=== PATIENT | male | born 1990 | race Caucasian/White ===

== ENCOUNTER 2019-11-12 08:56 | Emergency (ER) | payer OTHER ==
[2019-11-12 09:10] VITALS: BP 143/89; PULSE 107; RESP 18; TEMP 98.2
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
== END 2019-11-12 11:16 | disposition home or self-care (01) ==
LOC: EC 08:56
DX: S62.324A Displaced fracture of shaft of fourth metacarpal bone, right hand, initial encounter for closed fracture (principal); S02.32XA Fracture of orbital floor, left side, initial encounter for closed fracture; F17.200 Nicotine dependence, unspecified, uncomplicated; Z91.048 Other nonmedicinal substance allergy status; V89.2XXA Person injured in unspecified motor-vehicle accident, traffic, initial encounter; Y92.410 Unspecified street and highway as the place of occurrence of the external cause
CPT/HCPCS: 29125; 70450; 72125; 99284

== ENCOUNTER 2024-09-20 07:13 | Emergency (ER) | payer OTHER ==
[2024-09-20 07:19] VITALS: TEMP 97.8
--- NOTE | 2024-09-20 07:23 | ED ---
Chest Pain HPI - General Source: patient, RN notes reviewed Mode of arrival: ambulatory Limitations: no limitations <Dimitris Cavazos - Last Filed: 09/20/24 07:22> <Ruddy Bermudez - Last Filed: 09/20/24 09:05> - General Chief Complaint: Chest Pain Stated Complaint: chest pain, SOB Time Seen by Provider: 09/20/24 07:22 - History of Present Illness Initial Comments: Quick note: 34-year-old male presented ER for evaluation of chest discomfort. He states it started yesterday while shopping at [employer] around 2 PM. He also reports mild lightheadedness and shortness of breath. No radiation of this pain. No significant past medical history (Dimitris Cavazos) 34-year-old male who is otherwise healthy presenting with anterior chest pain. Pain does not radiate. Pain is just left of the sternum. No associated dyspnea. No radiation. No vomiting. No diaphoresis. No lower extremity pain or swelling. Pain is worse with movement. (Ruddy Bermudez) - Related Data Previous Rx's Medication Instructions Recorded Amoxicillin/Potassium Clav 1 tab PO BID 7 Days #14 tab 11/12/19 [Augmentin 875-125 Tablet] Allergies Allergy/AdvReac Type Severity Reaction Status Date / Time Iodine and Iodide Containing Allergy Rash/Hives Verified 09/20/24 07:19 Produc Review of Systems ROS Other: All systems not noted in ROS Statement are negative. <Dimitris Cavazos - Last Filed: 09/20/24 07:22> ROS Other: All systems not noted in ROS Statement are negative. <Ruddy Bermudez - Last Filed: 09/20/24 09:05> ROS Statement: Those systems with pertinent positive or pertinent negative responses have been documented in the HPI. Past Medical History Past Medical History: No Reported History History of Any Multi-Drug Resistant Organisms: None Reported Additional Past Surgical History / Comment(s): bladder sx, tendon suture left hand Past Psychological History: No Psychological Hx Reported Smoking Status: Current every day smoker Past Alcohol Use History: Daily Past Drug Use History: Marijuana <Dimitris Cavazos - Last Filed: 09/20/24 07:22> General Exam <Dimitris Cavazos - Last Filed: 09/20/24 07:22> General appearance: alert, in no apparent distress Head exam: Present: atraumatic, normocephalic Eye exam: Present: normal appearance, PERRL ENT exam: Present: normal exam Neck exam: Present: normal inspection. Absent: tenderness Respiratory exam: Present: normal lung sounds bilaterally, chest wall tenderness (Right anterior pectoral at the site of pain complaint). Absent: respiratory distress, wheezes Cardiovascular Exam: Present: regular rate, normal rhythm GI/Abdominal exam: Present: soft. Absent: distended Extremities exam: Present: normal inspection, normal capillary refill. Absent: pedal edema Neurological exam: Present: alert, oriented X3, CN II-XII intact. Absent: motor sensory deficit Psychiatric exam: Present: normal affect, normal mood Skin exam: Present: warm, dry, intact. Absent: cyanosis, diaphoretic <Ruddy Bermudez - Last Filed: 09/20/24 09:05> - General Exam Comments Initial Comments: Visual Physical Exam Vital signs reviewed General: Well-appearing, nontoxic, no acute distress. Head: Normocephalic, atraumatic Eyes: PERRLA, EOMI ENT: Airway patent Chest: Nonlabored breathing Skin: No visual rash, normal skin tone Neuro: Alert and oriented 3 Musculoskeletal: No gross abnormalities (Dimitris Cavazos) Course Vital Signs 09/20/24 07:14 Temperature 97.8 F Pulse Rate 72 Respiratory 20 Rate Blood Pressure 150/91 O2 Sat by Pulse 100 Oximetry Chest Pain [facility] <Dimitris Cavazos - Last Filed: 09/20/24 07:22> <Ruddy Bermudez - Last Filed: 09/20/24 09:05> - [facility] I performed the quick note portion of this chart. Electronically signed by Dimitris Cavazos PA-C (Dimitris Cavazos) Was pt. sent in by a medical professional or institution ([facility], CONTINUING EDUCATION INSTRUCTOR, urgent care, hospital, or longterm...) When possible be specific @ -No Did you speak to anyone other than the patient for history (EMS, parent, family, police, friend...)? What history was obtained from this source @ -No Did you review nursing and triage notes (agree or disagree)? Why? @ -I reviewed and agree with nursing and triage notes Were old charts reviewed (outside hosp., previous admission, EMS record, old EKG, old radiological studies, urgent care reports/EKG's, longterm records)? Report findings @ -No old charts were reviewed Differential Chest Pain: Stable Angina, Unstable Angina, STEMI, NSTEMI Aortic Dissection, Pneumothorax, Musculoskeletal, Esophageal Spasm GERD, Cholecystitis, Pancreatitis, Zoster, this is not meant to be an all-inclusive list. EKG interpreted by me (3pts min.). @ -EKG: Sinus rhythm rate of 74, NE interval 153, QRS duration 98, QTc 407 S1Q3T3, no old for comparison X-rays interpreted by me (1pt min.). @Chest x-ray no acute cardiopulmonary findings CT interpreted by me (1pt min.). @ -None done U/S interpreted by me (1pt. min.). @ -None done What testing was considered but not performed or refused? (CT, X-rays, U/S, labs)? Why? @ -None What meds were considered but not given or refused? Why? @ -None Did you discuss the management of the patient with other professionals (professionals i.e. , PA, CONTINUING EDUCATION INSTRUCTOR, lab, RT, psych nurse, case management social worker, casino slot supervisor, teacher, disciplinary hearing officer, upper caser)? Give summary @ -No Was smoking cessation discussed for >3mins.? @ -No Was critical care preformed (if so, how long)? @ -No Were there social determinants of health that impacted care today? How? (Homelessness, low income, unemployed, alcoholism, drug addiction, transportation, low edu. Level, literacy, decrease access to med. care, custodial, rehab)? @ -No Was there de-escalation of care discussed even if they declined (Discuss DNR or withdrawal of care, Hospice)? DNR status @ -No What co-morbidities impacted this encounter? (DM, HTN, Smoking, COPD, CAD, Cancer, CVA, ARF, Chemo, Hep., AIDS, mental health diagnosis, sleep apnea, morbid obesity)? @ -None Was patient admitted / discharged? Hospital course, mention meds given and route, prescriptions, significant lab abnormalities, going to OR and other perti nent info. @ -34-year-old male with left anterior chest pain, worse with movement, EKG does show an S1Q3T3 pattern therefore workup is including a D-dimer which is negative. Troponin level is negative and the patient's symptoms are consistent with musculoskeletal chest pain. Chest x-ray is clear. Laboratory testing otherwise unremarkable. Patient stable for discharge with return parameters and outpatient follow-up. Undiagnosed new problem with uncertain prognosis? @ -No Drug Therapy requiring intensive monitoring for toxicity (Heparin, Nitro, Insulin, Cardizem)? @ -No Were any procedures done? @ -No Diagnosis/symptom? @ -Chest pain Acute, or Chronic, or Acute on Chronic? @Acute Uncomplicated (without systemic symptoms) or Complicated (systemic symptoms)? @ -Default Side effects of treatment? @ -No Exacerbation, Progression, or Severe Exacerbation? @ -No Poses a threat to life or bodily function? How? (Chest pain, [place], [place], pneumonia, PE, COPD, DKA, ARF, appy, cholecystitis, CVA, Diverticulitis, Homicidal, Suicidal, threat to staff... and all critical care pts) @Low risk at this time (Ruddy Bermudez) Disposition <Dimitris Cavazos - Last Filed: 09/20/24 07:22> Is patient prescribed a controlled substance at d/c from ED?: No Time of Disposition: 09:04 <Ruddy Bermudez - Last Filed: 09/20/24 09:05> Clinical Impression: Atypical chest pain Disposition: HOME SELF-CARE Condition: Fair Instructions (If sedation given, give patient instructions): Chest Pain (ED) Referrals: None,Stated [Primary Care Provider] - 1-2 days
[2024-09-20 07:54] LABS: Basophils # (A) 0.06 10*3/uL (0.00-0.10); Basophils % (A) 0.8 %; Eosinophils # (A) 0.23 10*3/uL (0.04-0.35); HCT 44.9 % (39.6-50.0); HGB 16.1 g/dL (13.0-17.0); Lymphocytes # (A) 1.43 10*3/uL (0.90-5.00); Lymphocytes % (A) 18.4 %; MCH 32.4 pg (27.0-32.0); MCHC 35.9 g/dL (32.0-37.0); MCV 90.3 fL (80.0-97.0); Mean Platelet Volume 10.2 fL (9.5-12.2); Monocytes # (A) 0.67 10*3/uL (0.20-1.00); Monocytes % (A) 8.6 %; Neutrophils # (A) 5.38 10*3/uL (1.80-7.70); Neutrophils % (A) 68.9 %; Platelet Count 240 10*3/uL (140-440); RBC 4.97 10*6/uL (4.40-5.60); RDW 12.1 % (11.5-14.5); WBC 7.79 10*3/uL (4.50-10.00)
[2024-09-20 08:08] LABS: ALT 39 U/L (4-49); AST 26 U/L (17-59); African American GFR (CKD) 82 (>60 ml/min/1.73 sqM); Albumin 4.5 g/dL (3.5-5.0); Alkaline Phosphatase 66 U/L (38-126); Anion Gap 8 mmol/L; Blood Urea Nitrogen 18 mg/dL (9-20); Calcium 9.1 mg/dL (8.4-10.2); Carbon Dioxide 24 mmol/L (22-30); Chloride 107 mmol/L (98-107); Glucose 119 mg/dL (74-99); Magnesium 2.2 mg/dL (1.6-2.3); Non-African American GFR(CKD) 71 (>60 ml/min/1.73 sqM); Potassium 4.3 mmol/L (3.5-5.1); Sodium 139 mmol/L (137-145); Total Bilirubin 0.6 mg/dL (0.2-1.3); Total Protein 6.9 g/dL (6.3-8.2)
[2024-09-20 08:11] LABS: INR 0.9 (<1.2); Partial Thromboplastin Time 25.3 sec (22.0-30.0)
--- NOTE | 2024-09-20 08:37 | XR ---
EXAMINATION TYPE: XR chest 2V DATE OF EXAM: 09/20/2024 8:29 AM COMPARISON: None. CLINICAL INDICATION: Male, 34 years old with history of Chest Pain, TECHNIQUE: XR chest 2V view(s) obtained. FINDINGS: The heart size is normal. The pulmonary vasculature is normal. The lungs are clear. IMPRESSION: 1. No acute pulmonary process. [facility], , 09/20/2024 8:34 AM
[2024-09-20 09:27] VITALS: BP 126/85; PULSE 60; RESP 18
== END 2024-09-20 09:26 | disposition home or self-care (01) ==
LOC: EC 07:13
DX: R07.89 Other chest pain (principal); F17.200 Nicotine dependence, unspecified, uncomplicated; Z91.041 Radiographic dye allergy status
CPT/HCPCS: 36415; 71046; 80053; 83735; 84484; 85025; 85379; 85610; 85730; 93005; 99285